=== PATIENT | male | born 1955 | race Caucasian/White ===

== ENCOUNTER 2016-09-26 05:09 | Observation (INO) | payer BC ==
--- NOTE | ~2016-09-26 | TEE ---
Transesophageal Echocardiogram [facility] [address] [place]. [address] NAME: GUSTAVO BOYCE : 51 STATUS : REG REF PAT#: [id number] AGE: 60 ADM/REG DATE : 09/26/16 MR#: [id number] REPORT SERV DATE: 09/26/16 DICTATED BY: DATE: REPORT STATUS : Draft TRANSCRIBED BY: MODL DATE: 09/26/16 CHIEF COMPLAINT/REASON FOR STUDY: Atrial fibrillation. Written informed consent obtained. Please see chart for documentation. PROCEDURE: With the assistance of my Anesthesia colleagues, Mr. Boyce was sedated for the procedure. The transesophageal probe was placed with one attempt. There were no complications. 1. The aortic valve appeared trileaflet and opened adequately. There was no significant aortic valvular regurgitation. 2. The left ventricular systolic function appeared severely depressed with a visually estimated ejection fraction of 25%. 3. The mitral and tricuspid valve leaflets open normally. There was moderate mitral valve regurgitation via color flow and Doppler imaging. PISA radius 0.6 cm. There was mild tricuspid valve regurgitation via color flow and Doppler imaging. 4. The left atrium was dilated in size. The left atrium and left atrial appendage were interrogated at multiple levels and depths. The right atrium appeared dilated. There was no evidence of right atrial thrombus. Doppler velocities within the left atrial appendage were approximately 20 cm/second. The right ventricle appeared moderately decreased in systolic function. 5. There was no evidence of pericardial effusion. IMPRESSION: 1. Severely decreased left ventricular systolic function with a visually estimated ejection fraction of 25%. 2. Moderately decreased right ventricular systolic function. 3. Biatrial dilatation without evidence of thrombus present. 4. Moderate mitral regurgitation. 5. Mild tricuspid regurgitation. [facility] Gudelia Bolaños M.D. / [id number] CC: Abdi Young M.D.
[~2016-09-26 05:09] MED LIST: ALTA2.5 PO; ASAB PO; BENICAR20 PO; BETAPACE80 PO; CALTRA600D PO; CALTRAT600 PO; CORDARONE PO; COREG12 PO; COUMADIN4 MG PO; COUMADIN6 MG PO; CRESTOR5 MG PO; FISH-EPA1000 MG PO; FLOMAX4 PO; L20 PO; LIPITOR40 PO; PLAVIX PO; SPIRO25 PO; SUPER B COMP PO; TRANDAT100 PO; XARELTO20 MG PO
[2016-09-26 06:08] LABS: BASOPHILS 0.4 %; BASOPHILS ABSOLUTE 0.02 10/3/uL (0.0-0.16); EOSINOPHILS 3.6 %; EOSINOPHILS ABSOLUTE 0.19 10/3/uL (0.0-0.53); HEMATOCRIT 39.6 % (40.0-51.0); HEMOGLOBIN 13.4 g/dL (13.6-17.8); IMMATURE GRANULOCYTES 0.2 %; IMMATURE GRANULOCYTES ABSOLUTE 0.01 10/3/uL (0.0-0.11); LYMPHOCYTES 28.2 %; MEAN CORPUS HGB CONC 33.8 g/dL (32.0-36.0); MEAN CORPUSCULAR HEMOGLOB 30.9 pg (26.0-34.0); MEAN CORPUSCULAR VOLUME 91.2 fL (80-100); MEAN PLATELET VOLUME 8.7 fL (9.2-13.0); MONOCYTES 10.5 %; MONOCYTES ABSOLUTE 0.56 10/3/uL (0.21-1.20); NEUTROPHILS 57.1 %; NEUTROPHILS ABSOLUTE 3.04 10/3/uL (2.02-8.40); PLATELET COUNT 215 10/3/uL (150-400); RBC DISTRIBUTION WIDTH 13.1 % (12.0-16.0); RED CELL COUNT 4.34 10/6/uL (4.7-6.1); WHITE BLOOD CELLS 5.3 10/3/uL (4.5-10.5)
[2016-09-26 06:16] LABS: MANUAL DIFF NO %
[2016-09-26 06:25] LABS: BUN (BLOOD UREA NITROGEN) 20 MG/DL (6-23); CALCIUM, SERUM 8.6 MG/DL (8.5-10.4); CHLORIDE, SERUM 99 MMOL/L (96-112); CO2 (CARBON DIOXIDE) 24 MMOL/L (24-34); CREATININE 1.58 MG/DL (0.70-1.30); GFR AFRICAN AMERICAN 54 ML/MIN (>=60); GFR NON AFRICAN AMERICAN 46 ML/MIN (>=60); GLUCOSE, SERUM 91 MG/DL (60-99); POTASSIUM, SERUM 4.4 MMOL/L (3.5-5.3); SODIUM, SERUM 134 MMOL/L (135-148)
[2016-09-27] MEDS ORDERED: COREG3 PO (07:43)
[2016-10-14] MEDS ORDERED: FLOMAX4 PO (20:41)
[2016-10-14] MEDS ORDERED: PLAVIX PO (20:41)
[2016-10-14] MEDS ORDERED: XARELTO20 MG PO (20:41)
[2016-10-14] MEDS ORDERED: COREG12 PO (20:42)
[2016-10-14] MEDS ORDERED: SPIRO25 PO (20:42)
[2016-10-14] MEDS ORDERED: LIPITOR40 PO (20:42)
[2016-10-14] MEDS ORDERED: ALTA2.5 PO (20:42)
[2016-10-14] MEDS ORDERED: CORDARONE PO (20:43)
[2016-10-14] MEDS ORDERED: L20 PO (20:43)
[2016-10-14] MEDS ORDERED: CALTRA600D PO (20:43)
[2016-10-14] MEDS ORDERED: B COMPLETE PO (20:44)
[2017-02-17] MEDS ORDERED: PRIN10 PO (15:36)
== END 2016-09-27 13:39 | disposition home or self-care (01) ==
LOC: CORLMH 05:09 → SSU1 05:18
PROVIDERS: Internal Medicine Cardiovascular Disease
PROC: 4A023FZ Measurement of Cardiac Rhythm, Percutaneous Approach (ICD-10-PCS; principal; 2016-09-26)
PROC: 4A0234Z Measurement of Cardiac Electrical Activity, Percutaneous Approach (ICD-10-PCS; 2016-09-26)
PROC: 02583ZZ Destruction of Conduction Mechanism, Percutaneous Approach (ICD-10-PCS; 2016-09-26)
PROC: 02K83ZZ Map Conduction Mechanism, Percutaneous Approach (ICD-10-PCS; 2016-09-26)
DX: I48.1 Persistent atrial fibrillation (principal); I42.0 Dilated cardiomyopathy; I48.4 Atypical atrial flutter; I25.10 Atherosclerotic heart disease of native coronary artery without angina pectoris; I11.0 Hypertensive heart disease with heart failure; I50.22 Chronic systolic (congestive) heart failure; J44.9 Chronic obstructive pulmonary disease, unspecified; Z87.891 Personal history of nicotine dependence; Z79.01 Long term (current) use of anticoagulants; Z79.02 Long term (current) use of antithrombotics/antiplatelets; Z95.5 Presence of coronary angioplasty implant and graft; Z79.899 Other long term (current) drug therapy; Z98.890 Other specified postprocedural states
CPT/HCPCS: 80048; 82962; 85025; 85347; 93005; 93312; 93320; 93325; 93613; 93655; 93656; 93662; 96374; 96375; A9270-GY; C1730; C1732; C1759; C1769; C1781; C1894; G0378; J2270; J2370; J2405; J2710; J3010; Q9967